=== PATIENT | female | born 1995 | race American Indian/Alaskan Native ===

== ENCOUNTER 2021-05-04 15:48 | Inpatient (IN) | payer MEDICAID, OTHER ==
[2021-05-04] MEDS ORDERED: LOPERAMIDE 2 MG CAP PO PRN (19:17)
[2021-05-04] MEDS ORDERED: OXYTOCIN 10 UNIT/1 ML INJ IM PRN (19:17)
[2021-05-04] MEDS ORDERED: NALOXONE 0.4 MG/1 ML INJ IV PRN (19:17)
[2021-05-04] MEDS ORDERED: ACETAMINOPHEN 325 MG TAB PO PRN (19:17)
[2021-05-04] MEDS ORDERED: CARBOPROST TROMETHAMINE 250 MCG/1 ML INJ IM PRN (19:17)
[2021-05-04] MEDS ORDERED: MINERAL OIL 30 ML ORAL LIQD PO PRN (19:17)
[2021-05-04] MEDS ORDERED: ONDANSETRON 4 MG/2 ML INJ IV PRN (19:17)
[2021-05-04] MEDS ORDERED: METHYLERGONOVINE MALEATE 0.2 MG/ML VIAL IM PRN (19:17)
[2021-05-04] MEDS ORDERED: ePHEDrine SULFATE 50 MG/1 ML INJ IV PRN (19:17)
[2021-05-04] MEDS ORDERED: miSOPROStol 200 MCG TAB PR PRN (19:17)
[2021-05-04] MEDS ORDERED: AMPICILLIN/NS 2 GM/100 ML 2 GM/100 ML BAG IV ONE (19:17)
[2021-05-04] MEDS ORDERED: LIDOCAINE (2%) 20 MG/1 ML VIAL 20 ML MDV INFILTRATI ONE (19:17)
[2021-05-04] MEDS ORDERED: TERBUTALINE 1 MG/1 ML INJ SUB-Q PRN (19:17)
[2021-05-04] MEDS ORDERED: BUTORPHANOL 2 MG/1 ML INJ IV PRN (19:17)
--- NOTE | 2021-05-04 19:28 | History and Physical Report ---
History of Present Illness Date of examination: 05/04/21 Date of admission: 05/04/2021 Chief complaint: My water broke yesterday at 7PM History of present illness: Late entry to care, course complicated by Anemia and Vitamin D Deficiency. Past History Past Medical History: no pertinent history Past Surgical History: no surgical history Family/Genetic History: diabetes (MGM) Social history: no significant social history - Obstetrical History Expected Date of Delivery: 05/16/21 Actual Gestation: 38 Week(s) 2 Day(s) : 2 Para: 1 Number of Pregnancies: 1 Number of Living Children: 1 #1 Gender: Male year: [birth year] Birthweight: 2.268 kg Method of Delivery: Vaginal Gestational age at delivery: 35 Medications and Allergies Allergies Allergy/AdvReac Type Severity Reaction Status Date / Time No Known Allergies Allergy Verified 05/04/21 16:02 Home Medications Medication Instructions Recorded Confirmed Last Taken Type No Known Home Medications [No 04/04/15 04/04/15 Unknown History Reported Home Medications] Active Meds: Active Medications Acetaminophen (Acetaminophen 325 Mg Tab) 650 mg PO Q4H PRN PRN Reason: Pain, Mild (1-3) Butorphanol Tartrate (Butorphanol 2 Mg/1 Ml Inj) 2 mg IV Q2H PRN PRN Reason: Pain , Severe (7-10) Carboprost Tromethamine (Carboprost Tromethamine 250 Mcg/1 Ml Inj) 250 mcg IM ONCE PRN PRN Reason: Uterine Bleeding Ephedrine Sulfate (Ephedrine Sulfate 50 Mg/1 Ml Inj) 10 mg IV Q2M PRN PRN Reason: Hypotension Oxytocin/Sodium Chloride (Pitocin/Ns 30 Unit/500ml) 30 units in 500 mls @ 2 mls/hr IV TITR JAISON; Protocol Lactated Ringer's (Lactated Ringers) 1,000 mls @ 125 mls/hr IV DIRECT JAISON Oxytocin/Sodium Chloride (Pitocin/Ns 30 Unit/500ml) 30 units in 500 mls @ 40 mls/hr IV TITR JAISON; Protocol Ampicillin Sodium (Ampicillin/Ns 2 Gm/100 Ml) 2 gm in 100 mls @ 100 mls/hr IV ONCE ONE; Protocol Stop: 05/04/21 20:16 Ampicillin Sodium (Ampicillin/Ns 1 Gm/50 Ml) 1 gm in 50 mls @ 100 mls/hr IV Q4H JAISON; Protocol Lidocaine (Lidocaine (2%) 20 Mg/1 Ml Vial 20 Ml Mdv) 20 ml INFILTRATI ONCE ONE Stop: 05/04/21 19:18 Loperamide HCl (Loperamide 2 Mg Cap) 2 mg PO ONCE PRN PRN Reason: give with Hemabate Methylergonovine Maleate (Methylergonovine Maleate 0.2 Mg/Ml Vial) 0.2 mg IM ONCE PRN PRN Reason: Uterine Bleeding Mineral Oil (Mineral Oil 30 Ml Oral Liqd) 30 ml PO QHS PRN PRN Reason: Constipation Misoprostol (Misoprostol 200 Mcg Tab) 800 mcg [place] ONCE PRN PRN Reason: Uterine Bleeding Naloxone HCl (Naloxone 0.4 Mg/1 Ml Inj) 0.1 mg IV Q2MIN PRN PRN Reason: Res Rate </= 8 or 02 SAT < 92% Ondansetron HCl (Ondansetron 4 Mg/2 Ml Inj) 4 mg IV Q8H PRN PRN Reason: Nausea And Vomiting Oxytocin (Oxytocin 10 Unit/1 Ml Inj) 10 unit IM ONCE PRN PRN Reason: Uterine Bleeding Terbutaline Sulfate (Terbutaline 1 Mg/1 Ml Inj) 0.25 mg SUB-Q ONCE PRN PRN Reason: Hyperstimulation/Hypertonicity Review of Systems All systems: negative - Vital Signs Vital signs: Vital Signs Pulse Pulse Ox 109 H 98 05/04/21 16:10 05/04/21 16:10 Temp Pulse Resp BP Pulse Ox 98.2 F 71 18 107/69 100 05/04/21 16:14 05/04/21 19:19 05/04/21 16:14 05/04/21 16:14 05/04/21 19:19 - Physical Exam Breasts: Positive: normal Cardiovascular: Regular rate Lungs: Positive: Clear to auscultation, Normal air movement Abdomen: Positive: normal appearance, soft, normal bowel sounds Genitourinary (Female): Positive: normal external genitalia, normal perenium Vagina: Positive: normal moisture Uterus: Positive: enlarged Anus/Rectum: Positive: normal perianal skin - Obstetrical FHR: category 1 Uterine Contraction Monitor Mode: External Cervical Dilatation: 1 Uterine Contraction Pattern: Irregular Uterine Tone Measurement Phase: Resting Uterine Contraction Intensity: Mild Results Abnormal lab results 05/04/21 Range/Units Unknown Membranes Rupture Positive A (Negative) All other labs normal. Assessment and Plan A: IUP @ 38 2/7 Weeks Category I Tracing Prolonged Rupture of Membranes GBS Negative P: Admit to L&D Per Routine Orders ABX Prophylaxis due to Prolonged Rupture Pitocin Induction
[2021-05-04] MEDS ORDERED: LACTATED RINGERS 1,000 ML IV SCH (19:30)
[2021-05-04] MEDS ORDERED: OXYTOCIN DRIP 30 UNITS/500 ML BAG IV SCH ×2 (20:00)
[2021-05-04 20:06] LABS: Hematocrit 33.8 % (30.3-42.9); Hemoglobin 11.4 gm/dl (10.1-14.3); Mean Corpuscular HGB Conc 34 % (30-34); Mean Corpuscular Volume 77 fl (79-97); Platelet Count 157 K/mm3 (140-440); Red Blood Count 4.37 M/mm3 (3.65-5.03); Red Cell Distribution Width 16.2 % (13.2-15.2)
[2021-05-04] MEDS ORDERED: AMPICILLIN/NS 1 GM/50 ML 1 GM/50 ML BAG IV SCH (23:45)
[2021-05-05] MEDS ORDERED: ePHEDrine SULFATE 50 MG/1 ML INJ IV PRN (00:52)
[2021-05-05] MEDS ORDERED: NalbUPHINE 10 MG/1 ML INJ IV PRN (00:52)
[2021-05-05] MEDS ORDERED: ONDANSETRON 4 MG/2 ML INJ IV PRN ×2 (00:52→02:10)
[2021-05-05] MEDS ORDERED: LACTATED RINGERS 250 ML IV SOLN IV ONE (00:52)
[2021-05-05] MEDS ORDERED: diphenhydrAMINE 50 MG/ML VIAL IV PRN (00:52)
[2021-05-05] MEDS ORDERED: NALOXONE 2 MG/2 ML INJ IV PRN (00:52)
[2021-05-05] MEDS ORDERED: fentaNYL-BUPIV 2 MCG/ML-0.125% 200 MCG/100 ML BAG EPIDURAL SCH (01:00)
[2021-05-05] MEDS ORDERED: miSOPROStol 25 MCG TAB PO SCH (01:00)
[2021-05-05] MEDS ORDERED: OXYTOCIN DRIP 30 UNITS/500 ML BAG IV SCH (01:00)
--- NOTE | 2021-05-05 01:02 | Anesthesia Consultation ---
Anesthesia Consult and Med Hx Date of service: 05/05/21 - Airway Anesthetic Teeth Evaluation: Good ROM Head & Neck: Adequate Mental/Hyoid Distance: Adequate Mallampati Class: Class III Intubation Access Assessment: Probably Good - Pulmonary Exam CTA: Yes - Cardiac Exam Cardiac Exam: RRR - Pre-Operative Health Status ASA Pre-Surgery Classification: ASA2 Proposed Anesthetic Plan: Epidural - Pulmonary Hx Smoking: No Hx Asthma: No COPD: No Hx Pneumonia: No Hx Sleep Apnea: No - Cardiovascular System Hx Hypertension: No Hx Heart Attack/AMI: No Hx Angina: No - Central Nervous System Hx Seizures: No Hx Psychiatric Problems: No - Gastrointestinal Hx Gastroesophageal Reflux Disease: No - Endocrine Hx Renal Disease: No Hx End Stage Renal Disease: No Hx Liver Disease: No Hx Insulin Dependent Diabetes: No Hx Non-Insulin Dependent Diabetes: No Hx Hypothyroidism: No Hx Hyperthyroidism: No - Hematic Hx Anemia: No Hx Sickle Cell Disease: No - Other Systems Hx Alcohol Use: No
--- NOTE | 2021-05-05 01:26 | Progress Note ---
Labor Epidural - Labor Epidural Start Time: 01:10 Stop Time: 01:21 Performed by:: KENYA TOLEDO Procedure: Patient is requesting epidural for labor and pain. H&P, labs were reviewed. Patient IDed, H&P reviewed, all questions and concerns were answered, and consent was signed. Timeout was performed at bedside. Patient in sitting position. Sterile prep and drape was performed. 3ml of 1% lidocaine skin wheal at L[3]- L [4]. 17-gauge Tuohy epidural needle was advanced to loss of resistance with air technique 6cm. Negative CSF negative blood. Epidural catheter advanced to [12] centimeters. [negative] Aspiration [negative] test dose. Sterile dressing applied. Patient tolerated procedure.
[2021-05-05] MEDS ORDERED: LIDOCAINE (2%) 20 MG/1 ML VIAL 20 ML MDV INFILTRATI ONE (01:35)
[2021-05-05] MEDS ORDERED: LANOLIN/ZINC/DIMETHICONE (LANSINOH) 7 GM TP PRN (02:10)
[2021-05-05] MEDS ORDERED: HYDROCORTISONE 25 MG RECTAL SUPP PR PRN (02:10)
[2021-05-05] MEDS ORDERED: MAGNESIUM HYDROXIDE (MOM) ORAL LIQD UDC PO PRN (02:10)
[2021-05-05] MEDS ORDERED: BENZOCAINE/MENTHOL 20/0.5% TOP SPRAY 56 GM TP PRN (02:10)
[2021-05-05] MEDS ORDERED: WITCH HAZEL/ GLYCERIN PAD TP PRN (02:10)
[2021-05-05] MEDS ORDERED: PROMETHAZINE 25 MG TAB PO PRN (02:10)
[2021-05-05] MEDS ORDERED: ACETAMINOPHEN 325 MG TAB PO PRN (02:10)
[2021-05-05] MEDS ORDERED: HYDROcodone/ACETAMINOPHEN 5-325 MG TAB PO PRN (02:10)
[2021-05-05] MEDS ORDERED: diphenhydrAMINE 25 MG CAP PO PRN (02:10)
--- NOTE | 2021-05-05 02:11 | Procedure Note ---
OB Delivery Note - Delivery Date of Delivery: 05/05/21 Surgeon: HERNAN HANEY Estimated blood loss: 300cc - Vaginal Delivery position: OA Intrapartum events: PROM->1hr before delivery, precipitous labor- <3hr, other(please specify) (Term PROM. Prolonged rupture of membranes) Delivery induction: oxytocin Delivery monitor: external FHT Route of delivery: Delivery placenta: spontaneous Delivery cord: 3 umbilical vessels Episiotomy: none Delivery laceration: 2nd degree Delivery repair: vicryl Anesthesia: local, epidural - A at 1 minute: 8 at 5 minutes: 9 Infant Gender: Female
--- NOTE | 2021-05-05 02:45 | Ultrasound Report ---
ULTRASOUND OBSTETRIC LIMITED INDICATION / CLINICAL INFORMATION: Term PROM. Clinical Gestational Age (GA) in weeks, days: 37 weeks 6 days TECHNIQUE: Transabdominal. COMPARISON: None available. FINDINGS: NUMBER: Single PRESENTATION: cephalic MEASUREMENTS: - Biparietal Diameter = 8.2 cm = 33 weeks, 1 days - Head Circumference = 29.1 cm = 32 weeks, 0 days - Abdominal Circumference = 27.2 cm = 31 weeks, 2 days - Femur Length = 7.4 cm = 37 weeks, 6 days - Estimated Weight (in grams, if calculated): 2215 g - Heart Rate (beats per minute): Present. ADDITIONAL FINDINGS: None. AVERAGE ULTRASOUND AGE (AUA) in weeks, days = 33 weeks 4 days IMPRESSION: 1. Single intrauterine with AUA of 33 weeks, 4 days. This is 4 weeks less than the clinical gestational age. Signer Name: Sapna Cho MD Signed: 05/05/2021 2:40 AM Workstation Name: [id number]
[2021-05-05] MEDS: IBUPROFEN 600 MG TAB PO SCH ×4 (04:31→23:42)
[2021-05-05 06:00] LABS: Hemoglobin 11.6 gm/dl (10.1-14.3); Mean Corpuscular HGB Conc 33 % (30-34); Mean Corpuscular Volume 79 fl (79-97); Platelet Count 146 K/mm3 (140-440); Red Blood Count 4.43 M/mm3 (3.65-5.03); Red Cell Distribution Width 16.5 % (13.2-15.2)
--- NOTE | 2021-05-05 12:42 | Post Anesthesia Evaluation ---
- Post Anesthesia Evaluation Patient Participated: Yes Airway Patent: Yes Stable Respiratory Function: Yes Nausea/Vomiting: No Temp > 96.8F: Yes Pain Manageable: Yes Adequeate Hydration: Yes Anesthesia Complications: No Block Receding Appropriately: Yes Patient on Ventilator: No
[2021-05-06] MEDS: IBUPROFEN 600 MG TAB PO SCH ×3 (06:19→17:54)
--- NOTE | 2021-05-06 08:53 | Progress Note ---
Assessment and Plan A: PP Day #1 Stable P: Follow Routine Orders D/C Home today per patient request RTO in 6 Weeks Subjective - Subjective Date of service: 05/06/21 Interval history: Late entry to care, course complicated by Anemia and Vitamin D Deficiency. Patient reports: appetite normal, voiding normally, pain well controlled, flatus, ambulating normally : doing well, bottle feeding (and ) Objective - Vital Signs Latest vital signs: Vital Signs Temp Pulse Resp BP Pulse Ox Pulse Ox 05/06/21 07:37 98.2 F 77 19 115/60 97 05/06/21 01:20 98.4 F 75 20 110/71 95 05/05/21 23:42 20 05/05/21 19:45 98 05/05/21 16:41 97.9 F 78 18 110/69 99 05/05/21 13:04 98.2 F 85 18 104/55 98 Intake and Output 05/05/21 05/06/21 05/06/21 22:59 06:59 14:59 Intake Total 840 360 320 Output Total 1175 Balance -335 360 320 Intake: Oral 480 320 Intake, Free Water 360 360 Output: Urine 1175 Void 1175 Other: Total, Intake Amount 240 320 Total, Output Amount 650 # Voids Void 3 1 1 - Exam Breasts: Present: normal Cardiovascular: Present: Regular rate Lungs: Present: Clear to auscultation, Normal air movement Abdomen: Present: normal appearance, soft, normal bowel sounds Uterus: Present: normal, firm, fundal height below umbilicus Extremities: Present: normal
--- NOTE | 2021-05-06 08:54 | Discharge Summary ---
Providers - Providers Date of Admission: 05/05/21 15:30 Date of discharge: 05/07/21 Attending physician: ABRAN ELLSWORTH MD Primary care physician: ABRAN ELLSWORTH MD Hospitalization Reason for admission: rupture of membranes Delivery: Episiotomy: none Laceration: 2nd degree Other procedures: none complications: none Discharge diagnosis: IUP at term delivered baby: female Condition at discharge: Good Disposition: 01 HOME / SELF CARE / HOMELESS Plan - Provider Discharge Summary Activity: routine, no sex for 6 weeks, no heavy lifting 4 weeks, no strenuous exercise Diet: routine Instructions: routine Additional instructions: [] Smoking cessation referral if applicable(refer to patient education folder for contact #) [] Refer to [facility] Book[facility] Call your doctor immediately for: * Fever > 100.5 * Heavy vaginal bleeding ( >1 pad per hour) * Severe persistent headache * Shortness of breath * Reddened, hot, painful area to leg or breast * Drainage or odor from incision. * Keep incision clean and dry at all times and follow doctor's instructions regarding bathing/showering - Follow up plan Follow up: ABRAN ELLSWORTH MD [Primary Care Provider] - 6 Weeks
[2021-05-07] MEDS: IBUPROFEN 600 MG TAB PO SCH (02:44)
--- NOTE | 2021-05-07 10:30 | Event Note ---
Date: 05/07/21 nothing has changed since pt was discharged yesterday by Kassie. Pt seen and fundus remains firm and lochia scant. Discharge order re-sent for today. All questions encouraged and answered.
[2021-05-07 11:44] VITALS: BP 109/69
== END 2021-05-07 12:42 | disposition home or self-care (01) | DRG 775 ==
LOC: TRG 15:48 → APU 15:50 → INTOOBSV 16:05 → LD 16:05 → TRG 16:05 → LD 19:30 → OB 05-05 03:10 → OBSVTOIN 05-05 15:30
PROVIDERS: ADMIT Obstetrics & Gynecology; ATTEND Obstetrics & Gynecology
PROC: 10E0XZZ Delivery of Products of Conception, External Approach (ICD-10-PCS; principal; 2021-05-05)
PROC: 0KQM0ZZ Repair Perineum Muscle, Open Approach (ICD-10-PCS; 2021-05-05)
PROC: 3E0R3BZ Introduction of Anesthetic Agent into Spinal Canal, Percutaneous Approach (ICD-10-PCS; 2021-05-05)
PROC: 00HU33Z Insertion of Infusion Device into Spinal Canal, Percutaneous Approach (ICD-10-PCS; 2021-05-05)
PROC: 3E033VJ Introduction of Other Hormone into Peripheral Vein, Percutaneous Approach (ICD-10-PCS; 2021-05-05)
DX: O42.02 Full-term premature rupture of membranes, onset of labor within 24 hours of rupture (principal); Z3A.38 38 weeks gestation of pregnancy; Z37.0 Single live birth; Z20.822 Contact with and (suspected) exposure to COVID-19; O62.3 Precipitate labor; O70.1 Second degree perineal laceration during delivery
CPT/HCPCS: 36415; 59020; 59025; 76816; 84112; 85027; 86850; 86900; 86901; 96360; 96361; 96365; 96366; 96374; G0378; J3490; J0290; J0595; J2590; J7120; U0003